=== PATIENT | female | born 1985 | race Caucasian/White ===

== ENCOUNTER 2018-10-02 10:58 | Inpatient (IN) | payer OTHER ==
[2018-10-02 12:13] VITALS: BMI 28.3
[2018-10-02] MEDS ORDERED: METHYLERGONOVINE MALEATE 0.2 MG/1 ML AMP IM PRN (13:08)
[2018-10-02] MEDS ORDERED: oxyCODONE HCL 5 MG TABLET PO PRN (13:08)
[2018-10-02] MEDS ORDERED: IBUPROFEN 800 MG/8 ML IJ IVPB PRN (13:08)
--- NOTE | 2018-10-02 13:08 | HP ---
Past Medical History - Admission Chief Complaint: here for repeat c section History of Present Illness: 33 y/o with SIUP at 39 weeks here for scheduled repeat c section. Pt doing well this , no complications. H/o c section, h/o appendectomy. +FM, no VB/LOF/Ctx. History Source: Patient, Medical Record Limitations to Obtaining History: No Limitations - Past Medical History Cardiovascular: No: HTN Pulmonary: No: Asthma Hepatobiliary: No: Hepatitis B, Hepatitis C Renal/: No: UTI Reproductive: No: Fibroids, PID ...: 3 ...Para: 1 ...Term: 1 ...Spon : 1 ...EDC by [facility]: 10/09/18 Heme/Onc: No: Anemia Infectious Disease: No: HIV, MRSA, STD's Psych: No: Anxiety, Bipolar, Depression - Past Surgical History Past Surgical History: Yes: None Hx Myomectomy: No Hx Transabdominal Cerclage: No - Smoking History Smoking history: Former smoker Have you smoked in the past 12 months: No - Alcohol/Substance Use Hx Alcohol Use: No - Social History ADL: Independent History of Recent Travel: No Home Medications - Allergies Allergies/Adverse Reactions: Allergies Allergy/AdvReac Type Severity Reaction Status Date / Time No Known Allergies Allergy Verified 10/02/18 12:52 - Home Medications Home Medications: Ambulatory Orders Vit/Iron Fum/Folic AC [ Tablet] 1 each PO DAILY 02/11/15 Amox-Tr/K Cl [Augmentin - 500Mg Tablet] 1 tab PO BID #10 tab 02/24/15 Oxycodone HCl/Acetaminophen [Percocet 5-325 mg Tablet -] 1 - 2 tab PO Q4H #20 tablet 02/24/15 Tablet 1 tablet PO DAILY 10/02/18 Review of Systems - Review of Systems Constitutional: reports: No Symptoms Eyes: reports: No Symptoms HENT: reports: No Symptoms Neck: reports: No Symptoms Cardiovascular: reports: No Symptoms Respiratory: reports: No Symptoms Gastrointestinal: reports: No Symptoms Genitourinary: reports: No Symptoms Breasts: reports: No Symptoms Reported Musculoskeletal: reports: No Symptoms Integumentary: reports: No Symptoms Neurological: reports: No Symptoms Endocrine: reports: No Symptoms Hematology/Lymphatic: reports: No Symptoms Psychiatric: reports: No Symptoms Physical Exam - Maternity Vital Signs: Vital Signs Temperature 98.2 F 10/02/18 12:05 Pulse Rate 78 10/02/18 12:05 Respiratory Rate 18 10/02/18 12:05 Blood Pressure 126/76 10/02/18 12:05 O2 Sat by Pulse Oximetry (%) Constitutional: Yes: Well Nourished, No Distress, Calm Eyes: Yes: Conjunctiva Clear, EOM Intact HENT: Yes: Atraumatic, Normocephalic Neck: Yes: Trachea Midline Cardiovascular: Yes: Regular Rate and Rhythm Lungs: Clear to auscultation - Abdominal Exam/OB Number of Fetuses: Single Presentation: Vertex - Vaginal Exam/OB Amniotic Membrane Status: Intact Presentation: Vertex/Position Hemorrhage Risk Assessment - Risk Factors Medium Risk Factors: Yes: Prior , uterine surgery,or multiple laparotomies High Risk Factors: Yes: None Risk Score: 1 Risk Level: Medium Risk Problem List - Problems (1) History of delivery Code(s): Z98.891 - HISTORY OF UTERINE SCAR FROM PREVIOUS SURGERY (2) Term Code(s): Z34.90 - ENCNTR FOR SUPRVSN OF NORMAL , UNSP, UNSP TRIMESTER Assessment/Plan 33y/o with SIUP at 39 weeks for scheduled repeat delivery AFVSS NST reactive NPO Informed consent obtained bond catheter anesthesia/nursery aware
[2018-10-02] MEDS ORDERED: morphine SULFATE/PF 0.5 MG/ML (2cc Syringe - QUVA) ONE (13:18)
[2018-10-02] MEDS ORDERED: PHENYLEPHRINE HCL 10 MG/1 ML SINGLE DOSE VIAL ONE (13:18)
[2018-10-02] MEDS ORDERED: ceFAZolin SODIUM 1 GM VIAL ONE (13:50)
[2018-10-02] MEDS ORDERED: KETOROLAC TROMETHAMINE 30 MG/1 ML VIAL ONE (13:50)
[2018-10-02] MEDS ORDERED: ePHEDrine SULFATE 50 MG/1 ML AMPULE ONE (13:53)
[2018-10-02] MEDS ORDERED: GLYCOPYRROLATE 0.2 MG/1 ML VIAL ONE (13:54)
[2018-10-02] MEDS ORDERED: OXYTOCIN 20 UNITS in 0.9% NS 20 UNIT/1,000 ML INFUS.BAG IV ONE (13:59)
--- NOTE | 2018-10-02 14:18 | OP ---
Operative Note - Note: Operative Date: 10/02/18 Pre-Operative Diagnosis: prior c section, declined TOLAC Operation: repeat low transverse c section Post-Operative Diagnosis: Same as Pre-op Surgeon: Suzan Lama House Painter: Hernan Marcos Anesthesiologist/ACTIVITIES VOLUNTEER: Adele Mcneill Anesthesia: Spinal Specimens Removed: placenta Estimated Blood Loss (mls): 600 Operative Report Dictated: Yes
[2018-10-02] MEDS ORDERED: ONDANSETRON 4 MG/2 ML VIAL IVPUSH PRN (14:37)
[2018-10-02] MEDS ORDERED: ACETAMINOPHEN 325 MG TABLET (FP) PO PRN (14:37)
[2018-10-02] MEDS ORDERED: IBUPROFEN 600 MG TABLET (FP) PO PRN (14:37)
[2018-10-02] MEDS ORDERED: CITRIC ACID/SODIUM CITRATE 30 ML UNIT-DOSE CUP PO ONE (15:30)
[2018-10-02] MEDS ORDERED: ELECTROLYTE-148 SOLN 1,000 ML IV SCH (15:30)
[2018-10-02] MEDS ORDERED: OXYTOCIN 20 UNITS in 0.9% NS 20 UNIT/1,000 ML INFUS.BAG IV SCH (15:30)
--- NOTE | 2018-10-03 07:53 | PN ---
HC Provider Note Provider Note: Anesthesia Post op Note Pt seen s/p spinal for c/section Pt in bed awake alert, comfortable - pain well controlled Pt denies h/a, n/v, excessive puritis Pt reports full return of sensory and motor b/l lower ext bond in situ VSS no apparent anesthesia complications Fernanda Ny.
--- NOTE | 2018-10-03 08:46 | PN ---
Progress Note (SOAP) - Subjective Chief Complaint: Pt sore but doing well - Current Medications Current Medications: Active Medications Acetaminophen (Tylenol -) 650 mg PO Q4H PRN PRN Reason: FEVER Bisacodyl (Dulcolax Suppository -) 10 mg RC PRN PRN PRN Reason: CONSTIPATION Diphenhydramine HCl (Benadryl Injection -) 25 mg IVPUSH Q4H PRN PRN Reason: Pruritis Diphtheria/Tetanus/Acell Pertussis (Boostrix -) 0.5 ml IM .ONCE ONE Stop: 10/03/18 10:01 Oxytocin/Sodium Chloride (Normal Saline+20 Units Oxytocin -) 20 unit in 1,000 mls @ 125 mls/hr IV ASDIR [facility] Last Admin: 10/02/18 14:00 Dose: 125 mls/hr Parenteral Electrolytes (Plasma-Lyte 148 -) 1,000 mls @ 500 mls/hr IV ASDIR [facility] Last Admin: 10/02/18 11:30 Dose: 500 mls/hr Ibuprofen (Motrin -) 600 mg PO Q4H PRN PRN Reason: PAIN LEVEL 1 - 3 Ibuprofen (Caldolor Injection -) 800 mg IVPB Q8H PRN PRN Reason: PAIN LEVEL 4 - 6 Last Admin: 10/03/18 05:55 Dose: 800 mg Methylergonovine Maleate (Methergine Injection -) 0.2 mg IM Q4H PRN PRN Reason: Excessive Bleeding (L&D) Ondansetron HCl (Zofran Injection) 4 mg IVPUSH Q4H PRN PRN Reason: NAUSEA Oxycodone HCl (Roxicodone -) 5 mg PO Q4H PRN PRN Reason: PAIN LEVEL 4 - 6 Oxycodone HCl (Roxicodone -) 10 mg PO Q4H PRN PRN Reason: PAIN LEVEL 7 - 10 Multivit/Folic Acid/Iron ( Vitamins (Sjr) -) 1 tab PO DAILY [facility] Simethicone (Mylicon -) 80 mg PO Q4H PRN PRN Reason: GAS - Objective Vital Signs: Vital Signs Temperature 98.1 F 10/03/18 06:00 Pulse Rate 79 10/03/18 06:00 Respiratory Rate 20 10/03/18 06:00 Blood Pressure 113/67 10/03/18 06:00 O2 Sat by Pulse Oximetry (%) 99 10/02/18 14:30 Constitutional: Yes: Well Nourished, No Distress Neck: Yes: WNL Cardiovascular: Yes: WNL Respiratory: Yes: WNL Genitourinary: Yes: WNL ....Post : Yes: Uterus firm, Uterus non-tender Breast(s): Yes: WNL Musculoskeletal: Yes: WNL Extremities: Yes: WNL Edema: No Wound/Incision: Yes: Clean/Dry, Dressing Dry and Intact Neurological: Yes: WNL, Alert, Oriented Problem List - Problems (1) History of delivery Code(s): Z98.891 - HISTORY OF UTERINE SCAR FROM PREVIOUS SURGERY (2) delivery delivered Code(s): O82 - ENCOUNTER FOR DELIVERY WITHOUT INDICATION Assessment/Plan SP CS POD1 stable Plan Continue present management cbc oob
[2018-10-03 08:49] LABS: BASO % 0.3 % (0-2.0); EOS % 0.4 % (0-4.5); HEMATOCRIT 28.2 % (32.4-45.2); HEMOGLOBIN 9.4 GM/dL (10.7-15.3); MCH 29.3 pg (25.7-33.7); MCHC 33.5 g/dl (32.0-36.0); MEAN CELL VOLUME 87.7 fl (80-96); MEAN PLT VOLUME 10.3 fl (7.5-11.1); MONO % 9.8 % (3.8-10.2); NEUT % 76.5 % (42.8-82.8); PLATELET COUNT 134 K/MM3 (134-434); RBC 3.21 M/mm3 (3.60-5.2); RDW 14.3 % (11.6-15.6); WHITE BLOOD COUNT 14.2 K/mm3 (4.0-10.0)
[2018-10-03] MEDS: PRENATAL VITAMINS W/ FOLIC ACID TABLET (FP) PO SCH (09:35)
[2018-10-03] MEDS ORDERED: DIPHTH,PERTUSS(ACELL),TET 0.5 ML DISP.SYRIN IM ONE (10:00)
[2018-10-03] MEDS ORDERED: PRENATAL PO SCH (10:00)
[2018-10-03] MEDS: IBUPROFEN 600 MG TABLET (FP) PO PRN ×3 (11:00→21:22)
[2018-10-03] MEDS: ACETAMINOPHEN 325 MG TABLET (FP) PO PRN ×2 (11:01→15:44)
[2018-10-03] MEDS: SIMETHICONE 80 MG TAB.CHEW (FP) PO PRN ×3 (11:02→21:21)
[2018-10-03] MEDS ORDERED: BISACODYL 10 MG SUPP.RECT RC PRN (13:09)
[2018-10-03] MEDS: oxyCODONE HCL 5 MG TABLET PO PRN (21:22)
[2018-10-04] MEDS: IBUPROFEN 600 MG TABLET (FP) PO PRN ×2 (04:07→17:53)
[2018-10-04] MEDS: SIMETHICONE 80 MG TAB.CHEW (FP) PO PRN ×4 (04:07→22:12)
[2018-10-04] MEDS: oxyCODONE HCL 5 MG TABLET PO PRN ×4 (04:08→22:11)
[2018-10-04] MEDS: PRENATAL VITAMINS W/ FOLIC ACID TABLET (FP) PO SCH (09:54)
[2018-10-04] MEDS: ACETAMINOPHEN 325 MG TABLET (FP) PO PRN ×3 (09:59→22:11)
--- NOTE | 2018-10-04 19:49 | PN ---
Post Progress Note - Subjective Subjective: Pt seen/evaluated and doing well. Has incisicional pain and cramping but improves with PO meds. Tolerating diet, ambulating, voiding, passing flatus. VB was moderate now light . No other issues. Type of Delivery: Repeat C/S Vital Signs: Vital Signs Temperature 98 F 10/04/18 10:00 Pulse Rate 76 10/04/18 10:00 Respiratory Rate 20 10/04/18 10:00 Blood Pressure 112/68 10/04/18 10:00 O2 Sat by Pulse Oximetry (%) 99 10/02/18 14:30 Breast Exam: Yes: Soft Uterus: Yes: Fundus Firm Incision: Yes: Sutures intact Abdomen/GI: Yes: Abdomen soft Lochia: Yes: Rubra Lochia, amount: Small Extremities: Yes: Calves non-tender, Edema (nonpitting) Activity: Ambulating - Labs Labs: CBC WBC 14.2 K/mm3 (4.0-10.0) H 10/03/18 07:53 RBC 3.21 M/mm3 (3.60-5.2) L 10/03/18 07:53 Hgb 9.4 GM/dL (10.7-15.3) L 10/03/18 07:53 Hct 28.2 % (32.4-45.2) L D 10/03/18 07:53 MCV 87.7 fl (80-96) 10/03/18 07:53 MCH 29.3 pg (25.7-33.7) 10/03/18 07:53 MCHC 33.5 g/dl (32.0-36.0) 10/03/18 07:53 RDW 14.3 % (11.6-15.6) 10/03/18 07:53 Plt Count 134 K/MM3 (134-434) 10/03/18 07:53 MPV 10.3 fl (7.5-11.1) 10/03/18 07:53 Absolute Neuts (auto) 10.9 K/mm3 (1.5-8.0) H 10/03/18 07:53 Neutrophils % 76.5 % (42.8-82.8) 10/03/18 07:53 Lymphocytes % 13.0 % (8-40) D 10/03/18 07:53 Monocytes % 9.8 % (3.8-10.2) 10/03/18 07:53 Eosinophils % 0.4 % (0-4.5) 10/03/18 07:53 Basophils % 0.3 % (0-2.0) 10/03/18 07:53 Nucleated RBC % 0 % (0-0) 10/03/18 07:53 Problem List - Problems (1) History of delivery Code(s): Z98.891 - HISTORY OF UTERINE SCAR FROM PREVIOUS SURGERY (2) Term Code(s): Z34.90 - ENCNTR FOR SUPRVSN OF NORMAL , UNSP, UNSP TRIMESTER (3) delivery delivered Code(s): O82 - ENCOUNTER FOR DELIVERY WITHOUT INDICATION Assessment/Plan 33y/o POD#2 s/p repeat c section AFVSS Slight anemia - will give oral Iron and continue PNVs regular diet PO pain meds routine care plan for discharge home in a.m if stable
--- NOTE | 2018-10-04 19:55 | DS ---
Physical Exam-PRISONER CLASSIFICATION INTERVIEWER Vital Signs: Vital Signs Temperature 98 F 10/04/18 10:00 Pulse Rate 76 10/04/18 10:00 Respiratory Rate 20 10/04/18 10:00 Blood Pressure 112/68 10/04/18 10:00 O2 Sat by Pulse Oximetry (%) 99 10/02/18 14:30 Constitutional: Yes: Well Nourished, No Distress, Calm Eyes: Yes: Conjunctiva Clear, EOM Intact HENT: Yes: Normocephalic Neck: Yes: Trachea Midline Cardiovascular: Yes: Regular Rate and Rhythm Respiratory: Yes: Regular Gastrointestinal: Yes: Normal Bowel Sounds ....Post : Yes: Uterus firm, Uterus non-tender Wound/Incision: Yes: Clean/Dry, Well Approximated Neurological: Yes: Alert, Oriented Psychiatric: Yes: Alert, Oriented Labs: CBC, BMP 10/03/18 07:53 Delivery - Delivery Section: Repeat, Low Flap Transverse Type of Anesthesia: Spinal EBL (cc): 600 Delivery, Single - Stages of Labor Date of Delivery: 10/02/18 Time of Delivery: 13:40 Time Placenta Delivered: 13:40 - Condition of Piano Case And Bench Assembler/Stone Setter Present: Yes Name: Aleksey Mata Infant Gender: Female Weight: 8 lb Position: Left, OT Total Hours ROM (Hrs/Mins): 2M - 1 Minute Total Score: 9 5 Minutes Total Score: 9 - Feeding Plan Initial Plan: Elected not to breastfeed exclusively throughout hospitalization Discharge Summary Reason For Visit: REPEAT Current Active Problems delivery delivered (Acute) History of delivery (Acute) Term (Acute) Hospital Course: Pt was admitted on 10/02/18 for scheduled repeat c section. She underwent an uncomplicated procedure (see operative note). Pt had an uncomplicated post patum/post op course and was discharged home on post op day 3. Condition: Good - Instructions Diet, Activity, Other Instructions: discharge instructions Physical activity Resume your normal everyday activity as tolerated but no heavy lifting or strenuous exercise until seen by your surgeon. You may walk unlimited amounts and climb stairs. You may resume driving the car when you feel safe and comfortable behind the wheel. No sexual activity as instructed by Dr. Sheppard. Wound care If there are tapes on the skin leave them in place. They will peel off in the next 7 to 10 days. Do Not Peel them off. You may shower the day after surgery. If there are tapes present on the skin, you may shower over them. No soaking in tubs/baths/pools for 2 weeks. Diet There are no dietary restrictions. Eat healthy, high-fiber foods. Drink 6 to 8 glasses of liquid each day. This will assist in keeping your bowels regular. Pain management You may take Tylenol or Ibuprofen (for example, Motrin, Advil etc.) for mild pain . If any prescription pain medication is sent to your pharmacy please take for moderate to severe pain. Call Dr. Lama for any of the following: Severe pain not relieved by medication Fever of 101 or higher Excessive bleeding or drainage on dressing Inability to urinate Call the office at [phone] for an appointment in seven days. Disposition: HOME - Home Medications Comprehensive Discharge Medication List: Ambulatory Orders Vit/Iron Fum/Folic AC [ Tablet] 1 each PO DAILY 02/11/15 Amox-Tr/K Cl [Augmentin - 500Mg Tablet] 1 tab PO BID #10 tab 02/24/15 Oxycodone HCl/Acetaminophen [Percocet 5-325 mg Tablet -] 1 - 2 tab PO Q4H #20 tablet 02/24/15 Tablet 1 tablet PO DAILY 10/02/18 RX: Ibuprofen [Motrin -] 600 mg PO QID #28 tablet 10/03/18
[2018-10-05] MEDS: oxyCODONE HCL 5 MG TABLET PO PRN ×2 (04:11→09:19)
[2018-10-05] MEDS: ACETAMINOPHEN 325 MG TABLET (FP) PO PRN ×2 (04:11→09:20)
[2018-10-05] MEDS: SIMETHICONE 80 MG TAB.CHEW (FP) PO PRN ×2 (04:12→09:20)
[2018-10-05 07:51] LABS: BASO % 0.4 % (0-2.0); EOS % 1.7 % (0-4.5); HEMATOCRIT 29.2 % (32.4-45.2); HEMOGLOBIN 9.9 GM/dL (10.7-15.3); LYMPH % 17.7 % (8-40); MCH 30.1 pg (25.7-33.7); MCHC 33.9 g/dl (32.0-36.0); MEAN CELL VOLUME 88.7 fl (80-96); MEAN PLT VOLUME 9.8 fl (7.5-11.1); MONO % 11.3 % (3.8-10.2); NEUT % 68.9 % (42.8-82.8); PLATELET COUNT 149 K/MM3 (134-434); RBC 3.29 M/mm3 (3.60-5.2); RDW 14.7 % (11.6-15.6); WHITE BLOOD COUNT 8.4 K/mm3 (4.0-10.0)
[2018-10-05] MEDS: PRENATAL VITAMINS W/ FOLIC ACID TABLET (FP) PO SCH (09:19)
[2018-10-05 10:14] VITALS: BP 118/62; PULSE 89; TEMP 98.6
--- NOTE | 2018-10-05 18:14 | OP ---
DATE OF OPERATION: 10/02/2018 PREOPERATIVE DIAGNOSES: Single intrauterine at 39 weeks, prior section, declined trial of labor. POSTOPERATIVE DIAGNOSES: Single intrauterine at 39 weeks, prior section, declined trial of labor. PROCEDURE: Repeat low-transverse section. SURGEON: Suzan Lama MD TECHNICIAN TRAINEE: EARL Feliz ANESTHESIA: Spinal by Dr. Adele Mcneill ESTIMATED BLOOD LOSS: 600 mL. SPECIMENS REMOVED: Placenta. FINDINGS: Normal bilateral tubes and ovaries; live female . COMPLICATIONS: None. COUNTS: Sponge, needle, and instrument count correct. DISPOSITION: Stable to PACU. BRIEF HISTORY AND PROCEDURE: Patient is a 33-year-old female, who had a prior delivery for a failed induction in the past. She had declined a trial of labor and was scheduled for a repeat section. The patient was admitted to [facility] on October 02, 2018, for scheduled section, and consents for the procedure were signed upon admission. The patient was then taken back to the operating room, given spinal anesthesia, and placed in the dorsal supine position. A Huizar catheter was placed under sterile conditions. She was prepped and draped in the usual sterile fashion. A hard timeout was performed. A Pfannenstiel skin incision was created in the skin with a scalpel and carried to the underlying layer of rectus fascia sharply. The fascia was incised on either side of the midline and the fascial incision was carried in a superolateral direction sharply. The fascia was then tented upward and dissected off the underlying layer of rectus muscle sharply. The musculature was identified in the midline. The musculature was retracted laterally. The peritoneum was identified and entered sharply and dissected to allow for adequate room for delivery. A bladder blade was inserted. A low-transverse incision was created in the uterus, which was extended in a superolateral direction bluntly. The infant was then delivered from the left occiput transverse position. Bilateral shoulders and remainder of infant were delivered with ease. The cord was clamped twice and cut in between. The was taken over to the warmer to be assessed by neonatology staff, were scores of 9 and 9 were assigned. Placenta was delivered manually intact and a 3-vessel cord was noted. It was manually extracted from the uterus. The uterus was exteriorized and then cleared of all amniotic membrane and tissue with a dry lap sponge and Marycarmen clamps as needed. The uterine incision was reapproximated using 1 Vicryl in a running locked fashion and the 2nd layer using 0 Biosyn in a running fashion. Bilateral tubes and ovaries were inspected and noted to be normal. The posterior cul-de-sac was suctioned of any blood clot and fluid. The uterus was placed back into the abdomen. The incision again was noted to be hemostatic. The peritoneum was reapproximated using 2-0 chromic in a running fashion. The musculature was reapproximated in 2 interrupted sutures. The fascia was reapproximated using 1 Vicryl in a running fashion. The subcutaneous tissue was irrigated and any bleeding was cauterized with the Bovie device. The subcutaneous tissue was reapproximated using 1 Vicryl in a running fashion and the skin was reapproximated in subcuticular fashion using 3-0 Vicryl and Steri-Strips were applied. The patient tolerated the procedure well, is recovering in stable condition in the unit at this time. SUZAN LAMA DO /[id number]
--- NOTE | 2018-10-08 17:05 | PATH ---
Surgical Pathology Report Patient Name: CAPRICE CABAN Med. Rec. #: [id number] /Age/Gender: 1985 (Age: 33) / F Account: [id number] Location: [facility] OBS/[facility] Taken: 10/02/2018 Received: 10/03/2018 Reported: 10/08/2018 Physicians: Suzan Lama M.D. Specimen(s) Received PLACENTA Clinical History 2014 Final Diagnosis PLACENTA: THIRD TRIMESTER PLACENTA. TRIVASCULAR CORD. MEMBRANES WITH NO DIAGNOSTIC ABNORMALITIES. Electronically Signed Missy Vargas M.D. Gross Description The specimen is received fresh labeled placenta and is a 425 gram, 17.0 x 15.0 x 2.8 cm. placenta with attached membranes and umbilical cord. The attached membranes are casillas, translucent with focal opacities and insert marginally. The umbilical cord measures 30 cm. in length and averages 1 cm. in diameter. The cord inserts at the margin. No true knots or strictures are identified. Cut surface of the umbilical cord reveals 3 vessels. The surface is stewart blue with moderate fibrin deposition and appropriate caliber vessels. The maternal surface is red-brown with focal defects. Sectioning reveals red-brown, spongy parenchyma. No lesions are identified. Global Supply Chain Director sections are submitted in three cassettes as follows: 1- membrane rolls and umbilical cord; 2-3- full thickness sections of placenta. 10/07/2018 saudi10/07/2018
== END 2018-10-05 13:15 | disposition home or self-care (01) | DRG 788 ==
LOC: JLDR 10:58 → J3W 16:00
PROVIDERS: ADMIT Obstetrics & Gynecology; ATTEND Obstetrics & Gynecology
PROC: 10D00Z1 Extraction of Products of Conception, Low, Open Approach (ICD-10-PCS; principal; 2018-10-02)
DX: O34.219 Maternal care for unspecified type scar from previous cesarean delivery (principal); Z3A.39 39 weeks gestation of pregnancy; Z37.0 Single live birth
CPT/HCPCS: 36415; 85025; 88307-TC; 90715